=== PATIENT | female | born 1960 | race Asian ===

== ENCOUNTER 2016-10-13 19:04 | Emergency (ER) | payer BC ==
[2016-10-13 20:17] VITALS: BP 110/72
== END 2016-10-13 20:17 | disposition home or self-care (01) ==
LOC: ED 19:04
DX: H11.32 Conjunctival hemorrhage, left eye (principal); R03.0 Elevated blood-pressure reading, without diagnosis of hypertension; E78.5 Hyperlipidemia, unspecified; E11.9 Type 2 diabetes mellitus without complications; Z98.42 Cataract extraction status, left eye; Z98.41 Cataract extraction status, right eye